=== PATIENT | male | born 1970 | race Caucasian/White ===

== ENCOUNTER 2017-01-26 15:14 | Emergency (ER) | payer OTHER ==
[2017-01-26 15:49] VITALS: BP 126/92
[2017-01-26] MEDS ORDERED: Diphtheria,Pertussis(Acell),Tetanus Vaccine 0.5 ML Syringe IM ONE (16:05)
[2017-01-26] MEDS ORDERED: Bacitracin Oint 1 GM U/D Packet TOP ONE (16:06)
[2017-01-26] MEDS ORDERED: Acetaminophen 500 MG Tab PO ONE (16:13)
[2017-01-26] MEDS ORDERED: Lidocaine 1% with EPINEPHrine 1:100,000 20 ML MDV INJECT ONE (16:13)
--- NOTE | 2017-01-26 16:13 | EDM.PDOC ---
ED HPI GENERAL MEDICAL PROBLEM - General Chief Complaint: Laceration Stated Complaint: FELL TRUCK HIT HEAD,BOTH KNEES TAIL BONE Time Seen by Provider: 01/26/17 15:54 - History of Present Illness INITIAL COMMENTS - FREE TEXT/NARRATIVE: HISTORY AND PHYSICAL: History of present illness: The patient is a 46-year-old male with no stated pre-existing medical issues and no systemic complaints prior to having a simple fall from the back of a 4 moura he was loading landing on his buttocks and hitting the back of his head and then the track fell and hit him in the right knee. Patient did not pass out or black out and has no head neck or back pain and no chest pain or shortness of breath. He had no issues prior to these events. He has a small contusion on the back of his scalp and a small contusion in his elbow but no bony complaints and he has full range of motion at these areas. He has no abdominal issues no pelvis or hip issues and only complains of pain at his left knee where there is a laceration. Patient has no neurosensory changes in his right leg and is able to flex and extend and says the bones don't hurt is just a cut. Patient is unsure of his last tetanus shot. Since his injury the patient is not having any nausea vomiting or disorientation and has no discrete headache or neck pain. Review of systems: As per history of present illness and below otherwise all systems reviewed and negative. Past medical history: As per history of present illness and as reviewed below otherwise noncontributory. Surgical history: As per history of present illness and as reviewed below otherwise noncontributory. Social history: No reported history of drug or alcohol abuse. Family history: As per history of present illness and as reviewed below otherwise noncontributory. Physical exam: Gen.: Well-developed well-nourished man who is nontoxic and speaking clearly and easily in the ED. HEENT: Atraumatic with no scalp deformities with the exception of the contused area at the occipital scalp with a very superficial 2 cm laceration that barely extends through the epidermis. There is no soft tissue swelling and no palpable bony deformities here, normocephalic, pupils reactive, there is no facial swelling or deformities EOMs are intact negative for conjunctival pallor or scleral icterus, mucous membranes moist, throat clear, neck supple, nontender, trachea midline. TMs are normal bilaterally, there are no midline step-offs in his defects of the cervical spine Lungs: Clear to auscultation, breath sounds equal bilaterally, chest nontender. Heart: S1S2, regular, negative for clicks, rubs, or JVD. Abdomen: Soft, nondistended, nontender. Negative for masses or hepatosplenomegaly. Negative for costovertebral tenderness. Pelvis: Stable nontender. There is no lateral hip tenderness. Back: There are no midline step-offs tenderness or defects of the thoracic or lumbar spine no posterior rib or posterior pelvis tenderness and no visible evidence of soft tissue injury or deformities more specifically in the coccygeal area. Genitourinary: Deferred. Rectal: Deferred. Extremities: Full range of motion without any defects or deficits and there is a superficial abrasion/laceration seen at the left elbow without any surrounding soft tissue swelling or bony deformities or tenderness. At the left leg there are superficial abrasions seen which are nontender and there are no palpable bony deformities or tenderness. As the right thigh in the soft tissue in the proximal aspect there is an abrasion which is nontender and there is no tenderness in this region. At the right knee there are no palpable bony deformities or soft tissue swelling/joint effusions that there is a 5.5 cm laceration that extends to the subcutaneous tissue. No deep structures are visible and the quadriceps tendon appears to be intact and the patient is able to flex and extend at the knee. There are no palpable bony deformities here at the patella. The legs are negative for cords or calf pain. Neurovascular unremarkable. Neuro: Awake, alert, oriented. Cranial nerves II through XII unremarkable. Cerebellum unremarkable. Motor and sensory unremarkable throughout. Exam nonfocal. Diagnostics: X-ray right knee Therapeutics: Tdap, Tylenol, lidocaine with epinephrine for laceration repair of the knee, wound care for the elbow and the scalp, bacitracin to wounds, crutches to patient and Jez bandage on knee Procedure note: After the procedure was explained to the patient the wound was infiltrated locally with 1% lidocaine with epinephrine and the wound was prepped and draped in sterile fashion. Previously the wound had been irrigated and cleansed by nursing area the wound is explored and no foreign bodies were appreciated. The subcutaneous tissue was reapproximated using a total number of# 6 4-0 chromic sutures in simple interrupted fashion and the skin edges were reapproximated using a total number of #10 simple interrupted 4-0 Ethilon sutures with #3 sai . The patient tolerated the procedure well and a dressing and Jez were placed. The patient will be given crutches so as not to stress the laceration. There were no complications and the procedure was performed by Amish Rondon Impression: Fall with contusion/abrasions to scalp left elbow and extremities, 2 layer laceration of the right knee Definitive disposition and diagnosis as appropriate pending reevaluation and review of above. Right Knee Pain Score (Numeric/FACES): 2 - Related Data Allergies Allergy/AdvReac Type Severity Reaction Status Date / Time No Known Allergies Allergy Verified 01/26/17 15:49 Home Meds: Home Meds . [No Known Home Meds] 01/26/17 [History] Past Medical History - Past Surgical History GI Surgical History: Reports: Appendectomy Social & Family History - Tobacco Use Smoking Status *Q: Never Smoker - Caffeine Use Caffeine Use: Reports: Soda - Recreational Drug Use Recreational Drug Use: No ED ROS GENERAL - Review of Systems Review Of Systems: ROS reveals no pertinent complaints other than HPI. ED EXAM, SKIN/RASH Exam: See Below (See dictation) Course - Vital Signs Last Recorded V/S: Last Vital Signs Temp 36.1 C 01/26/17 15:45 Pulse 99 01/26/17 15:45 Resp 12 01/26/17 15:45 BP 126/92 H 01/26/17 15:45 Pulse Ox 96 01/26/17 15:45 - Orders/Labs/Meds Orders: Active Orders 24 hr Category Date Time Status Communication Order [RC] STAT Care 01/26/17 16:05 Active Vaccines to be Administered [RC] PER UNIT ROUTINE Care 01/26/17 16:06 Active Knee 3V Rt [CR] Stat Exams 01/26/17 16:05 Taken DME for Discharge [COMM] Stat Oth 01/26/17 17:57 Ordered Meds: Medications Discontinued Medications Generic Name Dose Route Start Last Admin Trade Name Freq PRN Reason Stop Dose Admin Acetaminophen 1,000 mg 01/26/17 16:13 01/26/17 16:39 Tylenol Extra Strength PO 01/26/17 16:14 1,000 mg ONETIME ONE Administration Bacitracin 2 dose 01/26/17 16:06 01/26/17 17:14 Bacitracin Oint 1 Gm TOP 01/26/17 16:07 2 dose ONETIME ONE Administration Diphtheria/Tetanus/Acell Pertussis 0.5 ml 01/26/17 16:05 01/26/17 16:41 Adacel IM 01/26/17 16:06 0.5 ml .ONCE ONE Administration Lidocaine/Epinephrine 20 ml 01/26/17 16:13 01/26/17 17:10 Xylocaine 1% With Epinephrine 1:100,000 INJECT 01/26/17 16:14 10 ml ONETIME ONE Administration Ondansetron HCl 4 mg 01/26/17 17:05 01/26/17 17:10 Zofran Odt PO 01/26/17 17:06 4 mg ONETIME ONE Administration Departure - Departure Time of Disposition: 18:00 Disposition: Home, Self-Care 01 Condition: Good Clinical Impression: Multiple abrasions Knee laceration Qualifiers: Encounter type: initial encounter Laterality: right Qualified Code(s): S81.011A - Laceration without foreign body, right knee, initial encounter Scalp contusion Qualifiers: Encounter type: initial encounter Qualified Code(s): S00.03XA - Contusion of scalp, initial encounter Closed head injury Qualifiers: Encounter type: initial encounter Qualified Code(s): S09.90XA - Unspecified injury of head, initial encounter Fall Qualifiers: Encounter type: initial encounter Qualified Code(s): W19.XXXA - Unspecified fall, initial encounter - Discharge Information Referrals: PCP,None [Primary Care Provider] - Forms: ED Department Discharge Additional Instructions: The following information is given to patients seen in the emergency department who are being discharged to home. This information is to outline your options for follow-up care. We provide all patients seen in our emergency department with a follow-up referral. The need for follow-up, as well as the timing and circumstances, are variable depending upon the specifics of your emergency department visit. If you don't have a primary care physician on staff, we will provide you with a referral. We always advise you to contact your personal physician following an emergency department visit to inform them of the circumstance of the visit and for follow-up with them and/or the need for any referrals to a consulting specialist. The emergency department will also refer you to a specialist when appropriate. This referral assures that you have the opportunity for followup care with a specialist. All of these measure are taken in an effort to provide you with optimal care, which includes your followup. Under all circumstances we always encourage you to contact your private physician who remains a resource for coordinating your care. When calling for followup care, please make the office aware that this follow-up is from your recent emergency room visit. If for any reason you are refused follow-up, please contact the [facility] emergency department at and ask to speak to the emergency department charge nurse. [facility] Specialty Care--Orthopedic clinic Professional Building [address] [place] [id number] [facility] Primary care- Internal Medicine and Family [facility] [address] [place] [phone] Please use crutches at all times for the next 2-3 days to avoid stress on the knee and the laceration. Please call and follow-up in our orthopedics department for wound reevaluation and suture removal or return to our ER in 10 days for suture removal. Please take antibiotics, Keflex you have been prescribed via [facility] until they are finished. Please keep the dressing that was placed in the ED on for the next 24 hours and then remove and cleanse with mild soap and water pat dry. Please continue to cleanse with mild soap and water 2 times a day and apply bacitracin or Neosporin. You may stop the ointment after 3 days. Please return to ER as needed and as discussed. Please cleanse the other wound areas with mild soap and water and apply bacitracin as you choose. Please expect aches and pains for the next few days to one week and use [id number] Tylenol or ibuprofen for that discomfort.. - My Orders Last 24 Hours: My Active Orders 01/26/17 16:05 Communication Order [RC] STAT Knee 3V Rt [CR] Stat 01/26/17 16:06 Vaccines to be Administered [RC] PER UNIT ROUTINE 01/26/17 17:57 DME for Discharge [COMM] Stat - Assessment/Plan Last 24 Hours: My Active Orders 01/26/17 16:05 Communication Order [RC] STAT Knee 3V Rt [CR] Stat 01/26/17 16:06 Vaccines to be Administered [RC] PER UNIT ROUTINE 01/26/17 17:57 DME for Discharge [COMM] Stat
[2017-01-26] MEDS ORDERED: Ondansetron 4 MG Tab.DIS PO ONE (17:05)
--- NOTE | 2017-01-27 17:08 | CR ---
EXAM DATE: 01/26/17 PATIENT'S AGE: 46 Patient: FOUZIA MCGEE Facility: [place], [place] Site . Site : 1970 Study: XRay Knee Right [id number]/10/2017 4:32:04 PM Ordering Physician: Chris Chaney Final Report: INDICATION: Right knee injury. TECHNIQUE: 3 views of the right knee. COMPARISON: None. FINDINGS: Alignment is normal. No joint effusion, fracture or other abnormality. No degenerative changes. IMPRESSION: No sign of acute injury. Dictated by Juan Francisco Toledo MD @ 01/26/2017 4:47:41 PM Dictated by: Juan Francisco Toledo MD @ 01/26/2017 16:47:46 (Electronic Signature) Report Signed by Proxy. [facility]
== END 2017-01-26 18:15 | disposition home or self-care (01) ==
LOC: MW.ED 15:14
DX: S81.011A Laceration without foreign body, right knee, initial encounter (principal); S51.012A Laceration without foreign body of left elbow, initial encounter; S01.01XA Laceration without foreign body of scalp, initial encounter; Z90.49 Acquired absence of other specified parts of digestive tract; V89.9XXA Person injured in unspecified vehicle accident, initial encounter; Z23 Encounter for immunization
CPT/HCPCS: 12032; 73562; 90471; 90715; 99283; A9270

== ENCOUNTER 2020-04-27 18:27 | Emergency (ER) | payer SELFPAY ==
--- NOTE | 2020-04-27 18:31 | EDM.PDOC ---
ED HPI GENERAL MEDICAL PROBLEM - General Chief Complaint: Bite:Animal, Insect Time Seen by Provider: 04/27/20 18:31 Source of Information: Reports: Patient History Limitations: Reports: No Limitations - History of Present Illness INITIAL COMMENTS - FREE TEXT/NARRATIVE: HISTORY AND PHYSICAL: History of present illness: Patient is a 49 year old male who presents to the ED with complaints of redness and irritation of the left anterior chest wall. He states for 5 days ago he thought he was bit by a spider and noticed a small area of redness which is progressively gotten larger in size. He denies having any drainage, fluctuance or firmness of the skin. Patient denies any fever, chills, headache, change in vision, syncope or near syncope. Denies any chest pain, back pain, shortness of breath or cough. Denies any GI or symptoms. Patient has been eating and drinking appropriately. Review of systems: As per history of present illness and below otherwise all systems reviewed and negative. Past medical history: As per history of present illness and as reviewed below otherwise noncontributory. Surgical history: As per history of present illness and as reviewed below otherwise noncontribu tory. Social history: See social history for further information Family history: As per history of present illness and as reviewed below otherwise noncontributory. Physical exam: General: Well developed and well nourished 49-year-old male. Alert and orientated x 3. Nontoxic in appearance and in no acute distress. Vital signs are stable and have been reviewed by me. Nursing notes were reviewed. HEENT: Atraumatic, normocephalic, pupils equal and reactive bilaterally, negative for conjunctival pallor or scleral icterus, mucous membranes moist, neck supple, nontender, trachea midline. No drooling or trismus noted. No meningeal signs. No hot potato voice noted. Lungs: Clear to auscultation, breath sounds equal bilaterally, chest nontender. Normal work of breathing, no accessory muscles used. Heart: S1S2, regular rate and rhythm without overt murmur Abdomen: Soft, nondistended, nontender. Skin: Approximately a palmar sized area of diffuse redness with warmth above the left nipple. In the center of this he does have a small scabbed area that does not have any drainage. There is no fluctuance or firmness of the skin. No necrosis noted. Remaining skin is intact, warm, dry. No lesions or rashes noted. Hematologic: No petechiae or purpra. Mucosa appropriate color and normal nail bed color and refill. Extremities: Atraumatic, moves all extremities per self without difficulty or d eficits, negative for cords or calf pain. Neurovascular unremarkable. Neuro: Awake, alert, oriented. Cranial nerves II through XII unremarkable. Cerebellum unremarkable. Motor and sensory unremarkable throughout. Exam nonfocal. Psychiatric: Mood and affect are appropriate. Normal thought process. Answering questions appropriately. Notes: I did outline the margin of the area of cellulitis and had thorough education with the patient that he needed to monitor the site closely. Reassessment at the time of disposition demonstrates that the patient is in no acute distress. The patient is stable for discharge, counseling was provided and we discussed in great detail signs and symptoms that would prompt them to return to the Emergency Department. Medication, follow up and supportive care measures were reviewed and discussed. Voices understanding and is agreeable to plan of care. Denies any further questions or concerns at this time. Diagnostics: None Therapeutics: None Prescription: Clindamycin Impression: Cellulitis Plan: 1. Today your skin appears to have a soft tissue infection. WATCH the site closely; if the redness exceeds the margins you may need to return for IV antibiotics/admission. Please keep the skin clean and dry. Continue to monitor for signs of improvement. 2. Alternate Tylenol and/or Ibuprofen as needed. 3. We encourage you to follow up with your primary care provider and/or recommended specialist in the next few days for re-evaluation and further care/management. If your symptoms should worsen, new symptoms develop or any of the signs and symptoms we discussed should arise please return to the emergency room or call 911 (if needed). Definitive disposition and diagnosis as appropriate pending reevaluation and review of above. - Related Data Allergies Allergy/AdvReac Type Severity Reaction Status Date / Time No Known Allergies Allergy Verified 04/27/20 18:38 Home Meds: Home Meds clindamycin HCL [Clindamycin HCl] 450 mg PO TID 5 Days #45 capsule 04/27/20 [Rx] Past Medical History - Past Surgical History GI Surgical History: Reports: Appendectomy Social & Family History - Caffeine Use Caffeine Use: Reports: Soda ED ROS GENERAL - Review of Systems Review Of Systems: Comprehensive ROS is negative, except as noted in HPI. ED EXAM, ANIMAL BITE - Physical Exam Exam: See Below (See dictation) Course - Vital Signs Last Recorded V/S: Last Vital Signs Temp 98.3 F 04/27/20 18:38 Pulse 100 04/27/20 18:38 Resp 16 04/27/20 18:38 BP 121/85 04/27/20 18:38 Pulse Ox 96 04/27/20 18:38 - Orders/Labs/Meds Meds: Medications Discontinued Medications Generic Name Dose Route Start Last Admin Trade Name Kody PRN Reason Stop Dose Admin Clindamycin HCl 450 mg 04/27/20 18:50 Cleocin PO 04/27/20 18:51 NOW STA Departure - Departure Time of Disposition: 18:50 Disposition: Home, Self-Care 01 Clinical Impression: Cellulitis Qualifiers: Site of cellulitis: trunk Site of cellulitis of trunk: chest wall Qualified Code(s): L03.313 - Cellulitis of chest wall - Discharge Information Prescriptions: clindamycin HCL [Clindamycin HCl] 450 mg PO TID 5 Days #45 capsule Instructions: Cellulitis, Adult, [id number] Forms: ED Department Discharge Additional Instructions: The following information is given to patients seen in the emergency department who are being discharged to home. This information is to outline your options for follow-up care. We provide all patients seen in our emergency department with a follow-up referral. The need for follow-up, as well as the timing and circumstances, are variable depending upon the specifics of your emergency department visit. If you don't have a primary care physician on staff, we will provide you with a referral. We always advise you to contact your personal physician following an emergency department visit to inform them of the circumstance of the visit and for follow-up with them and/or the need for any referrals to a consulting specialist. The emergency department will also refer you to a specialist when appropriate. This referral assures that you have the opportunity for follow-up care with a specialist. All of these measure are taken in an effort to provide you with optimal care, which includes your follow-up. Under all circumstances we always encourage you to contact your private physician who remains a resource for coordinating your care. When calling for follow-up care, please make the office aware that this follow-up is from your recent emergency room visit. If for any reason you are refused follow-up, please contact the [facility] Emergency Department at and asked to speak to the emergency department charge nurse. [facility] Primary Care [address] [place] [id number] [facility] [address] [place] [phone] Thank you for choosing the [facility] emergency department in [place] for your medical needs today. It was a pleasure caring for you. Today you were seen in the emergency department for skin infection/redness. 1. Today your skin appears to have a soft tissue infection. WATCH the site closely; if the redness exceeds the margins you may need to return for IV antibiotics/admission. Please keep the skin clean and dry. Continue to monitor for signs of improvement. 2. Alternate Tylenol and/or Ibuprofen as needed. 3. We encourage you to follow up with your primary care provider and/or recommended specialist in the next few days for re-evaluation and further care/management. If your symptoms should worsen, new symptoms develop or any of the signs and symptoms we discussed should arise please return to the emergency room or call 911 (if needed). Sepsis Event Note (ED) - Focused Exam Vital Signs: Vital Signs Temp Pulse Resp BP Pulse Ox 04/27/20 18:38 98.3 F 100 16 121/85 96
[2020-04-27] MEDS ORDERED: Clindamycin HCl 150 MG Cap PO STA (18:50)
[2020-04-27 18:56] VITALS: BP 113/79; PULSE 99
== END 2020-04-27 19:05 | disposition home or self-care (01) ==
LOC: MW.ED 18:27
DX: L03.313 Cellulitis of chest wall (principal)
CPT/HCPCS: 99283; A9270; 99282